=== PATIENT | male | born 1955 | race Caucasian/White ===

== ENCOUNTER 2017-03-06 16:50 | Emergency (ER) | payer OTHER ==
[2017-03-06 17:39] LABS: HEMOGLOBIN 15.8 gm/dl (14.0-17.5); RED BLOOD COUNT 5.47 M/UL (4.20-5.50); WHITE BLOOD COUNT 7.4 K/UL (4.5-11.0)
== END 2017-03-06 22:05 | disposition home or self-care (01) ==
LOC: ER1 16:50
PROVIDERS: Emergency Medicine
DX: Z04.1 Encounter for examination and observation following transport accident (principal); E10.8 Type 1 diabetes mellitus with unspecified complications; I12.9 Hypertensive chronic kidney disease with stage 1 through stage 4 chronic kidney disease, or unspecified chronic kidney disease; N18.3 Chronic kidney disease, stage 3 (moderate); E78.00 Pure hypercholesterolemia, unspecified
CPT/HCPCS: 36415; 70450; 71250; 72072; 72125; 80053; 85025; 99284

== ENCOUNTER → 2017-03-22 | Outpatient (CLI) | payer OTHER | LOC: EMI 12:54 | DX: M54.12 Radiculopathy, cervical region (principal); M54.2 Cervicalgia; M54.89 Other dorsalgia; E11.22 Type 2 diabetes mellitus with diabetic chronic kidney disease; I12.9 Hypertensive chronic kidney disease with stage 1 through stage 4 chronic kidney disease, or unspecified chronic kidney disease; N18.2 Chronic kidney disease, stage 2 (mild); E11.42 Type 2 diabetes mellitus with diabetic polyneuropathy; E11.65 Type 2 diabetes mellitus with hyperglycemia; E11.69 Type 2 diabetes mellitus with other specified complication; E78.5 Hyperlipidemia, unspecified; G89.11 Acute pain due to trauma; K43.9 Ventral hernia without obstruction or gangrene; R10.32 Left lower quadrant pain; R23.8 Other skin changes; R53.83 Other fatigue; S30.1XXD Contusion of abdominal wall, subsequent encounter; S40.012D Contusion of left shoulder, subsequent encounter; M51.34 Other intervertebral disc degeneration, thoracic region; M51.24 Other intervertebral disc displacement, thoracic region; M47.893 Other spondylosis, cervicothoracic region | CPT/HCPCS: 72141; 72146 ==